=== PATIENT | male | born 1995 | race Caucasian/White ===

== ENCOUNTER 2018-11-10 16:22 | Emergency (ER) | payer SELFPAY ==
[~2018-11-10] VITALS: Ht 180.3 cm; Wt 80.0 kg
[2018-11-10 16:26] VITALS: BP 120/74
[2018-11-10] MEDS ORDERED: LIDOCAINE-MPF 1%, 2ML ONE (17:17)
[2018-11-10] MEDS ORDERED: AZITHROMYCIN 250 MG TABLET ONE (17:18)
[2018-11-10] MEDS ORDERED: CEFTRIAXONE 250 MG ONE (17:18)
[2018-11-10] MEDS ORDERED: CEFTRIAXONE 250 MG IM ONE (17:30)
[2018-11-10] MEDS ORDERED: AZITHROMYCIN 250 MG TABLET PO ONE (17:30)
== END 2018-11-10 17:33 | disposition home or self-care (01) ==
LOC: ED 17:15
DX: A56.8 Sexually transmitted chlamydial infection of other sites (principal); A54.9 Gonococcal infection, unspecified
CPT/HCPCS: 96372; 99283; J0696